=== PATIENT | female | born 1940 | race Caucasian/White ===

== ENCOUNTER → 2017-06-21 | Outpatient (CLI) | payer MEDICARE, BC ==
[~2017-06-21] MED LIST: ACCUPRIL40 MG PO; ALEVE220 MG PO; ASCORBIC ACID500 MG PO; ASPIRIN LO-DOSE81 MG PO; BIOTIN1000 MCG PO; CALCIUM CARBON600 MG PO; GLUCOPHAGE1000 MG PO; KLONOPIN2 MG PO; LEVEMIR FL100 UNIT/1 SUB-Q; LEVOTHROID (S125 MCG PO; LISINOPRIL10 MG PO; LYRICA 150MG C150 MG PO; NOVOLOG FL100 UNIT/1 SUB-Q; PROBIOTIC1 EAC1 PO; TOPROL XL25 MG PO; TRIAMTERENE-HC1 EAC1 PO; ULTRAM50 MG PO; VITAMIN B-6100 MG PO; VITAMIN B-625 MG PO; VITAMIN D-32000 UNI1 PO
== END | disposition disaster alternative care site (69) ==
LOC: GRAD 11:47
DX: R07.81 Pleurodynia (principal); S22.31XA Fracture of one rib, right side, initial encounter for closed fracture; W19.XXXA Unspecified fall, initial encounter

== ENCOUNTER → 2017-07-04 | Outpatient (CLI) | payer MEDICARE, BC | END | disposition disaster alternative care site (69) | LOC: GOPD 06-30 → EDSTATUS → GOPD → GRAD 12:50 → GOPD 16:00 | PROC: 3E0R33Z Introduction of Anti-inflammatory into Spinal Canal, Percutaneous Approach (ICD-10-PCS; principal; 2017-07-04) | PROC: 3E0R3BZ Introduction of Anesthetic Agent into Spinal Canal, Percutaneous Approach (ICD-10-PCS; 2017-07-04) | DX: M54.9 Dorsalgia, unspecified (principal); I10 Essential (primary) hypertension; R20.0 Anesthesia of skin; H26.9 Unspecified cataract; E11.8 Type 2 diabetes mellitus with unspecified complications; Z79.4 Long term (current) use of insulin; Z79.84 Long term (current) use of oral hypoglycemic drugs; E07.9 Disorder of thyroid, unspecified; M19.90 Unspecified osteoarthritis, unspecified site; R55 Syncope and collapse; G25.81 Restless legs syndrome; C44.90 Unspecified malignant neoplasm of skin, unspecified; Z87.59 Personal history of other complications of pregnancy, childbirth and the puerperium; Z98.891 History of uterine scar from previous surgery; Z90.710 Acquired absence of both cervix and uterus | CPT/HCPCS: J1040 ==